=== PATIENT | male | born 1975 | race Hispanic/Latino ===

== ENCOUNTER 2024-06-25 14:50 | Emergency (ER) | payer BC, SELFPAY ==
--- NOTE | ~2024-06-25 | XR_ITS ---
EXAMINATION: XR shoulder LT min 2V DATE: 06/25/2024 15:35 INDICATION: Left shoulder dislocation status post reduction. TECHNIQUE: 2 views of left shoulder were obtained. COMPARISON: Left shoulder radiographs at 2:59 PM FINDINGS: Alignment is normal. There is a fracture fragment posterior to the humeral head. The glenoh umeral joint is not well profiled. There is severe osteoarthritis or coracoclavicular joint. IMPRESSION: 1. Normal alignment at glenohumeral joint. 2. Displaced fracture fragment posterior to the humeral head. 3. Severe acromioclavicular joint osteoarthritis. Reviewed, dictated and finalized at location B.
--- NOTE | ~2024-06-25 | XR_ITS ---
EXAMINATION: XR shoulder LT min 2V DATE: 06/25/2024 15:02 INDICATION: Left shoulder injury. TECHNIQUE: 3 views of left shoulder were obtained. COMPARISON: None. FINDINGS: There is anterior dislocation of humeral head with respect to glenoid. No visible fracture. There is severe osteoarthritis of acromioclavicular joint. IMPRESSION: 1. Anterior left shoulder dislocation. Reviewed, dictated and finalized at location B.
[2024-06-25 14:52] VITALS: BP 141/97; PULSE 58; RESP 19; TEMP 36.6; O2SAT 100
[2024-06-25] MEDS: ONDANSETRON INJ 4 MG/2 ML VIAL IV PUSH (15:05)
[2024-06-25] MEDS: HYDROmorphone HCL INJ (*CRX) 1 MG/ML SYR 0.5 MG IV PUSH (15:07)
--- NOTE | 2024-06-25 15:22 | ED.FALL ---
HPI - Fall General Chief Complaint: Fall Stated Complaint: dislocated shoulder post fall Time Seen by Provider: 06/25/24 15:22 History of Present Illness HPI Narrative: PATIENT HAD GROUND LEVEL FALL, PLAYING HOCKEY, COMPLAINING OF LEFT SHOULDER PAIN, DEFORMITY, DENIES OTHER INJURIES. Related Data Home Medications Medication Instructions Recorded Confirmed No Home Medications 08/15/21 08/15/21 Allergies Allergy/AdvReac Type Severity Reaction Status Date / Time Penicillins Allergy Mild Rash Verified 08/27/22 09:23 Review of Systems Review of Systems: All systems reviewed & are unremarkable except as noted in HPI and below PMFSH Family History Family History Father Dementia Social History Social History Smoking status: Never smoker Second hand tobacco smoke exposure: No Alcohol intake: current Substance use: never Substance use type: does not use Living arrangements: with family Occupation/Education: occupation Gender identity (if verbalized by the patient): Male Sexual Orientation (if Verbalized by the Patient): Straight or Heterosexual Exam Narrative: GENERAL APPEARANCE: WELL-DEVELOPED, WELL-NOURISHED SKIN: NORMAL COLOR HEAD: NORMOCEPHALIC, NONTRAUMATIC EYES: CLEAR CONJUNCTIVA ENT: OROPHARYNX NORMAL, EARS NORMAL, NOSE NORMAL NECK: SUPPLE, NONTENDER CHEST AND RESPIRATORY: AIRWAY PATENT, NO RESPIRATORY DISTRESS, NO ACCESSORY MUSCLE USE HEART: REGULAR RATE/RHYTHM ABDOMEN: SOFT, NONTENDER, NO ORGANOMEGALY, QUIET BOWEL SOUNDS VASCULAR: NORMAL PERIPHERAL PULSES, NORMAL CAPILLARY REFILL. MUSCULOSKELETAL: LEFT SHOULDER EXAM SHOWED DEFORMITY, SEVERE DIFFUSE TENDERNESS, SEVERE LIMITED RANGE OF MOTION, NEUROVASCULAR INTACT NEUROLOGIC: ALERT AND ORIENTED ?3, CIRCULATION SALES REPRESENTATIVE IS NORMAL TESTED, NO GROSS MOTOR DEFICIT Course Vital Signs Vital signs: Vital Signs Temperature 36.6 C 06/25/24 14:52 Pulse Rate 58 L 06/25/24 14:52 Respiratory Rate 19 06/25/24 14:52 Blood Pressure 141/97 H 06/25/24 14:52 Pulse Oximetry 100 06/25/24 14:52 Oxygen Delivery Room Air 06/25/24 14:52 Temperature 36.6 C 06/25/24 14:52 Pulse Rate 58 L 06/25/24 14:52 Respiratory Rate 19 06/25/24 14:52 Blood Pressure 141/97 H 06/25/24 14:52 Pulse Oximetry 100 06/25/24 14:52 Oxygen Delivery Room Air 06/25/24 14:52 Procedures Orthopedic Joint Reduction Joint #1: Orthopedic Joint Reduction Date: 06/25/24 Orthopedic Joint Reduction Time: 15:34 Time Out Performed: Yes (2) Side: left Joint Reduction Location: shoulder Analgesia: none Pre-Procedure Neuro Vascular Exam: normal Shoulder Technique Used (if applicable): external rotation Post-reduction neuro exam: intact Post-reduction vascular: intact Post Reduction X-Ray Obtained: Yes Post Reduction X-Ray Results: reduced Splint Applied: Yes Patient Tolerated Procedure: well MDM - Fall MDM Narrative Medical decision making narrative: PATIENT HAD A FALL, LEFT SHOULDER DISLOCATION, CLOSED REDUCTION WITHOUT CONSCIOUS SEDATION, PATIENT TOLERATED THE PROCEDURE WELL DISCHARGED ON SHOULDER IMMOBILIZER, TO FOLLOW-UP WITH ORTHOPEDIC Differential Diagnosis Differential diagnosis: Likely other (DISLOCATION, SHOULDER) Imaging Data Radiologist's impression: Impressions Shoulder X-Ray 06/25/24 15:03 IMPRESSION: 1. Anterior left shoulder dislocation. Shoulder X-Ray 06/25/24 15:37 IMPRESSION: 1. Normal alignment at glenohumeral joint. 2. Displaced fracture fragment posterior to the humeral head. 3. Severe acromioclavicular joint osteoarthritis. Discharge Plan Discharge Clinical Impression: Anterior dislocation of left shoulder Patient Disposition: Home, Self-Care Condition: Improved Instructions: Shoulder Dislocation (ED), Closed Reduction (ED) Additional Instructions: RETURN IF SYMPTOMS ARE WORSENING , CALL ORTHOPEDIC FOR APPOINTMENT, TAKE TYLENOL NEEDED FOR ACHES AND PAIN, CONTINUE HOME MEDICATIONS. Prescriptions: No Action No Home Medications Follow-up/Referrals: Rahul Garnett MD [Primary Care Provider] - Montez Cordero MD [Physician] - 06/28/24
== END 2024-06-25 16:24 | disposition home or self-care (01) ==
LOC: ANHED 16:02
PROVIDERS: Emergency Provider Emergency Medicine; PCP Family Medicine
DX: S43.015A Anterior dislocation of left humerus, initial encounter (principal); W18.30XA Fall on same level, unspecified, initial encounter; Y93.22 Activity, ice hockey
CPT/HCPCS: 23650; 73030; 96374; 96375; 99285; A4565; J1171; J2405; J7030

== ENCOUNTER 2024-07-28 15:07 | Outpatient (CLI) | payer BC, SELFPAY ==
--- NOTE | ~2024-07-28 | MR_ITS ---
EXAMINATION: MR shoulder LT wo con DATE: 07/28/2024 15:46 INDICATION: Anterior left shoulder dislocation. TECHNIQUE: Magnetic resonance imaging (MRI) of the left shoulder was performed without intravenous co ntrast. Sequences included axial PD-weighted FS FSE, coronal oblique PD-weighted FS FSE and T2-weight ed FS FSE, and sagittal oblique T2-weighted FS FSE and T1-weighted FSE. COMPARISON: Left shoulder radiographs 06/25/2024 FINDINGS: Coracoacromial arch: The acromion undersurface is flat in morphology (type I). There is severe acromioclavicular joint ost eoarthritis. There is mild subacromial/subdeltoid bursitis. Rotator cuff: There is moderate supraspinatus tendinopathy and mild infraspinatus tendinopathy. Teres minor tendon is normal. There is mild subscapularis tendinopathy. The rotator cuff muscle bellies are normal. Biceps tendon and glenoid labrum: Biceps tendon is in bicipital groove. There is mild intra-articular biceps tendinopathy. There is a d isplaced fracture of the anteroinferior glenoid with associated tear of the anteroinferior labrum. Th ere is a tear of the posterior labrum. Fluid: There is a small glenohumeral joint effusion. There is a 4 mm loose body in the glenohumeral joint in feriorly. Bones/cartilage: There is an impaction fracture deformity of superior posterolateral aspect of humeral head (Hill-Sach s fracture deformity). There is shallow partial-thickness cartilage loss of humeral head. There is pa rtial-thickness cartilage loss of glenoid, deep at the posterior glenoid where there are subchondral cysts. IMPRESSION: 1. Bony Bankart lesion. 2. Moderate glenohumeral joint chondrosis. 3. Small glenohumeral joint effusion with loose body. 4. Severe acromioclavicular joint osteoarthritis. 5. Mild subacromial/subdeltoid bursitis. 6. Moderate rotator cuff tendinopathy. No tear. 7. Mild intra-articular biceps tendinopathy. Reviewed, dictated and finalized at location A. TECHNICIAN
== END 2024-07-28 15:08 | disposition home or self-care (01) ==
PROVIDERS: PCP Family Medicine; Visit Provider Orthopaedic Surgery
DX: S43.015A Anterior dislocation of left humerus, initial encounter (principal); S42.202A Unspecified fracture of upper end of left humerus, initial encounter for closed fracture; X58.XXXA Exposure to other specified factors, initial encounter; M75.52 Bursitis of left shoulder; M19.012 Primary osteoarthritis, left shoulder
CPT/HCPCS: 73221

== ENCOUNTER 2024-10-09 07:15 | Emergency (ER) | payer BC, SELFPAY ==
--- NOTE | ~2024-10-09 | XR_ITS ---
EXAMINATION: XR chest 2V DATE: 10/09/2024 07:47 INDICATION: Chest pain TECHNIQUE: PA and lateral views of the chest were obtained. COMPARISON: None FINDINGS: The lungs are clear with no focal airspace opacities, pulmonary edema, pleural effusion or pneumothor ax. Cardiomegaly. Mild thoracic spondylosis. IMPRESSION: 1. Cardiomegaly. Reviewed, dictated and finalized at location A. IDE MAINTENANCE WORKER IMPRESSION: 1. Cardiomegaly.
--- NOTE | 2024-10-09 07:16 | ECG_ITS ---
Test Date: 2024-10-09 07:25:10 Measurements Intervals [place] Rate: 53 P: 4 SC: 133 QRS: 6 QRSD: 94 T: -6 QT: 411 QTc: 386 Interpretive Statements SINUS BRADYCARDIA CONSIDER INFERIOR INFARCT, AGE INDETERMINATE BASELINE ARTIFACT- I, II, III, AVR, AVL, AVF, V4-V6 ABNORMAL ECG No previous ECG available for comparison Electronically Signed On 10-09-2024 07:40:36 [employer]ARN INSPECTOR by Willie Hunter D.O.
[2024-10-09 07:23] VITALS: O2SAT 92
[2024-10-09 07:25] VITALS: PULSE 69
[2024-10-09 07:26] VITALS: BP 156/85; PULSE 55; RESP 18; O2SAT 100
[2024-10-09] MEDS: ASPIRIN 81 MG CHEWABLE TABLET 324 MG PO (07:26)
[2024-10-09 07:27] VITALS: PULSE 58
[2024-10-09 07:34] LABS: Basophils Absolute Auto 0.1 K/mm3 (0.0-0.1); Basophils Percent Auto 0.4 % (0.2-1.2); Eosinophils Absolute Auto 0.1 K/mm3 (0-0.3); Eosinophils Percent Auto 0.6 % (0-4.4); Hematocrit 34.3 % (42.0-52.0); Hemoglobin 10.6 g/dL (14.0-18.0); Immature Granulocyte Absolute 0.04 K/mm3 (0.00-0.031); Immature Granulocyte Percent A 0.3 % (0-0.5); Lymphocytes Absolute Auto 2.45 K/mm3 (0.9-3.2); Lymphocytes Percent Auto 21.1 % (18.3-44.2); Mean Corpuscular HGB Conc 30.9 g/dl (32-36); Mean Corpuscular Hemoglobin 22.8 pg (26-34); Mean Corpuscular Volume 73.9 fl (80-100); Mean Platelet Volume 11.5 fl (7.4-10.4); Monocytes Absolute Auto 0.6 K/mm3 (0.1-0.6); Monocytes Percent Auto 5.2 % (2.6-8.5); Neutrophils Absolute Auto 8.4 K/mm3 (1.3-6.7); Neutrophils Percent Auto 72.4 % (45.5-73.1); Platelet Count Result 279 k/mm3 (150-375); Red Blood Count 4.64 M/mm3 (4.6-6.20); Red Cell Distribution Width 16.6 % (11.5-14.5); White Blood Count 11.6 K/mm3 (4.5-10.0)
--- NOTE | 2024-10-09 07:44 | ED_ITS ---
HPI - General Adult General Chief complaint: Chest Pain Stated complaint: chest pain Time Seen by Provider: 10/09/24 07:23 History of Present Illness HPI narrative: Patient is a 89-year-old male who presents the ER with chest pain. Symptoms began yesterday evening at 6:00 p.m. located centrally without radiation aching in nature. Aggravated by by lying down flat. Alleviated by sitting up. He did eat some pizza last night for dinner. Does not typically get reflux. No belching or vomiting. No exertional chest discomfort. No history of heart disease/hypertension/diabetes. Related Data Allergies Allergy/AdvReac Type Severity Reaction Status Date / Time Penicillins Allergy Mild Rash Verified 10/09/24 07:18 Review of Systems 2 Review of Systems: All systems reviewed & are unremarkable except as noted in HPI and below Constitutional: Constitutional: Reports no additional constitutional complaints Cardiovascular: Cardiovascular: Reports no additional cardiovascular complaints Respiratory: Respiratory: Reports no additional respiratory complaints Gastrointestinal: Gastrointestinal: Reports no additional gastrointestinal complaints Genitourinary: Genitourinary: Reports no additional male genitourinary complaints [facility] Past Medical History Medical History (Updated 10/09/24 @ 09:43 by Roger Mehta MD) Healthy adult male Family History Family History Father Dementia Social History Social History Smoking status: Never smoker Second hand tobacco smoke exposure: No Alcohol intake: current Substance use: never Substance use type: does not use Do You Feel Safe in your Home?: Yes Lack of Transportation: No Lack of Food: Never True Current Housing: I Have Housing Concerned About Future Housing: No Difficulty Paying Gas/Electric Bills: No Difficulty Paying for Meds: No Currently Unemployed: No Education: Bachelor's Degree Difficulty w/ Childcare or Family Care: No Living arrangements: with family Occupation/Education: occupation Gender identity (if verbalized by the patient): Male Sexual Orientation (if Verbalized by the Patient): Straight or Heterosexual Exam 2 Narrative: GENERAL: Well-appearing, well-nourished, and in no acute distress. HEAD: Normocephalic, atraumatic. ENT: Mucous membranes moist. CHEST: Clear to auscultation. No respiratory distress. HEART: Regular rate and rhythm. Normal peripheral pulses. ABDOMEN: Soft, nontender, nondistended. EXTREMITIES: Normal range of motion. No edema. SKIN: Warm, dry, no rash. NEURO: Alert and oriented x3. PSYCH: Normal mood and affect. Course Vital Signs Vital signs: Vital Signs Pulse Oximetry 92 10/09/24 07:23 Oxygen Delivery Room Air 10/09/24 07:23 Pulse Rate 58 L 10/09/24 07:27 Respiratory Rate 18 10/09/24 07:26 Blood Pressure 156/85 H 10/09/24 07:26 Pulse Oximetry 100 10/09/24 07:26 Oxygen Delivery Room Air 10/09/24 07:23 Medical Decision Making MDM Narrative Medical decision making narrative: -Course: Resting comfortably. No major issues. Temporary relief after GI cocktail but significant improvement after Toradol. -Co-morbidities complicating care: History of bradycardia. -Social determinants of health: none -External Chart Review: None -Hx from independent Sources: Patient -Independent interpretation of studies: Mild anemia. X-ray with reported cardiomegaly. Labs otherwise unremarkable. Troponin negative. EKG with nonspecific ST changes. -Interventions: GI cocktail, Toradol -Shared decision making / Disposition: Recommend PPI and NSAIDs for home. Follow-up with PCP. Discussed need to further evaluate anemia possible cardiomegaly. Vital Signs Vital Signs: Vital Signs Pulse Oximetry 92 10/09/24 07:23 Oxygen Delivery Room Air 10/09/24 07:23 Pulse Rate 58 L 10/09/24 07:27 Respiratory Rate 18 10/09/24 07:26 Blood Pressure 156/85 H 10/09/24 07:26 Pulse Oximetry 100 10/09/24 07:26 Oxygen Delivery Room Air 10/09/24 07:23 Lab Data 10/09/24 07:26 10/09/24 07:26 Labs: Lab Results 10/09/24 Range/Units 07:26 WBC 11.6 H (4.5-10.0) K/mm3 RBC 4.64 (4.6-6.20) M/mm3 Hgb 10.6 L (14.0-18.0) g/dL Hct 34.3 L (42.0-52.0) % MCV 73.9 L (80-100) fl MCH 22.8 L (26-34) pg MCHC 30.9 L (32-36) g/dl RDW 16.6 H (11.5-14.5) % Plt Count 279 (150-375) k/mm3 MPV 11.5 H (7.4-10.4) fl Immature Gran % (Auto) 0.3 (0-0.5) % Neut % (Auto) 72.4 (45.5-73.1) % Lymph % (Auto) 21.1 (18.3-44.2) % [place] % (Auto) 5.2 (2.6-8.5) % Eos % (Auto) 0.6 (0-4.4) % Baso % (Auto) 0.4 (0.2-1.2) % Lymph # (Auto) 2.45 (0.9-3.2) K/mm3 [place] # (Auto) 0.6 (0.1-0.6) K/mm3 Eos # (Auto) 0.1 (0-0.3) K/mm3 Baso # (Auto) 0.1 (0.0-0.1) K/mm3 Abs Immat Gran (auto) 0.04 H (0.00-0.031) K/mm3 Absolute Neuts (auto) 8.4 H (1.3-6.7) K/mm3 Absolute Nucleated RBC 0.000 (0.0-0.012) K/mm3 Nucleated RBC % 0.0 (0.0-0.2) % Platelet Estimate Increased (Adequate) Anisocytosis 1+ Ovalocytes 1+ Schistocytes None seen PT 13.0 (11.1-14.7) Seconds INR 0.9 APTT 27.4 (22.3-36.8) Seconds Sodium 138 (137-145) mmol/L Potassium 3.8 (3.4-5.0) mmol/L Chloride 104 (98-107) mmol/L Carbon Dioxide 26 (22-30) mmol/L Anion Gap 8 (4-12) mmol/L BUN 14 (9-20) mg/dL Creatinine 0.79 (0.7-1.3) mg/dL Estim Creat Clear Calc 96 ml/min Estimated GFR > 60 (59 - ) Glucose 118 H (65-110) mg/dL Calcium 9.2 (8.4-10.2) mg/dL Total Bilirubin 0.4 (0.2-1.3) mg/dL AST 32 (17-59) U/L ALT 20 (6-50) U/L Alkaline Phosphatase 132 H (38-126) U/L Troponin I < 0.012 (0.000-0.034) ng/mL Total Protein 8.0 (6.3-8.2) g/dL Albumin 4.1 (3.5-5.1) g/dL Lipase 165 (23-300) U/L ECG Data EKG #1: ECG completion date: 10/09/24 ECG completion time: : EKG Interpretation: bradycardia (53), sinus rhythm, non-specific ST changes, normal QT and NL axis Discharge Plan Discharge Clinical Impression: Anemia, Cardiomegaly, Chest wall pain Patient Disposition: Home, Self-Care Condition: Stable Instructions: Antibiotic Form, Chest Pain (ED), Anemia (ED) Additional Instructions: Please return to the emergency department if you develop severe and persistent chest pain, difficulty breathing, dizziness, leg swelling or if you are coughing up blood as these can be signs of a medical emergency. Please call your doctor for a follow up appointment to determine the need for further testing. Patient Language: Lebanese Prescriptions: New naproxen 375 mg tablet 375 mg PO BID Qty: 14 0RF pantoprazole [Protonix] 40 mg tablet,delayed release (DR/EC) 40 mg PO BID Qty: 30 0RF Follow-up/Referrals: Rahul Garnett MD [Primary Care Provider] - 1 Week Quality HEART score for chest pain patients History: slightly suspicious ECG: non specific repolarization disturbance/LBTB/PM Age: > 45 and < 65 years Risk factors: no risk factors known Troponin: < or = to 1x normal limit Heart score: 2
[2024-10-09 07:49] LABS: Alanine Aminotransferase 20 U/L (6-50); Albumin Level 4.1 g/dL (3.5-5.1); Alkaline Phosphatase 132 U/L (38-126); Anion Gap 8 mmol/L (4-12); Aspartate Amino Transferase 32 U/L (17-59); Bilirubin,Total 0.4 mg/dL (0.2-1.3); Blood Urea Nitrogen 14 mg/dL (9-20); Calcium 9.2 mg/dL (8.4-10.2); Carbon Dioxide 26 mmol/L (22-30); Chloride 104 mmol/L (98-107); Estimated CRCL calculation 96 ml/min; Estimated Glomerular Filt Rate > 60; Glucose 118 mg/dL (65-110); Lipase 165 U/L (23-300); Potassium 3.8 mmol/L (3.4-5.0); Sodium 138 mmol/L (137-145)
[2024-10-09 07:53] LABS: INR 0.9
[2024-10-09 07:54] LABS: Partial Thromboplastin Time 27.4 Seconds (22.3-36.8)
[2024-10-09] MEDS: BELLADONNA ALK/PHENOB ELIX 10 ML, MAG HYDROX/ALUMINUM HYD/SIMETH 30 ML, LIDOCAINE 2% VI... PO (07:56)
[2024-10-09 07:59] LABS: Anisocytosis 1+; Ovalocytes 1+; Platelet Estimate Increased (Adequate); Schistocytes None Seen; Troponin I < 0.012 ng/mL (0.000-0.034)
[2024-10-09] MEDS: KETOROLAC 30 MG/ML VIAL (*BKC) IV PUSH (09:09)
[2024-10-09 09:55] VITALS: BP 125/82; PULSE 51; RESP 16; O2SAT 100
== END 2024-10-09 09:57 | disposition home or self-care (01) ==
PROVIDERS: Emergency Provider Emergency Medicine; PCP Family Medicine
DX: R07.89 Other chest pain (principal); I51.7 Cardiomegaly; D64.9 Anemia, unspecified; R00.1 Bradycardia, unspecified; R94.31 Abnormal electrocardiogram [ECG] [EKG]
CPT/HCPCS: 36415; 71046; 80053; 83690; 84484; 85025; 85610; 85730; 93005; 96374; 99284; A9270; J1885

== ENCOUNTER 2024-11-13 06:59 | Emergency (ER) | payer BC, SELFPAY ==
--- NOTE | ~2024-11-13 | CT_ITS ---
EXAMINATION: CT abdomen pelvis w con DATE: 11/13/2024 08:47 INDICATION: Abdomen pain TECHNIQUE: Computed tomography (CT) of the abdomen and pelvis was performed with 100 cc Omnipaque 350 intravenous contrast. The dose-length product was 392.66 mGy-cm. Automated exposure control and iter ative reconstruction technique were employed. COMPARISON: None. FINDINGS: Lung bases unremarkable. Heart size normal. The liver, spleen, pancreas, adrenal glands and kidneys are unremarkable. There is lymphadenopathy in the portacaval region and lesser curvature of the stomach. There is an accessory splenule at the splenic hilum. There is periaortic lymphadenopathy extending to the bifurcation. Gallbladder is present. Nonobstructive bowel gas pattern. Normal appendix. Uterus is likely surgicall y absent. IMPRESSION: 1. Extensive abdominal lymphadenopathy involving the lesser curvature of the stomach, portacaval loca tion, right renal hilum, interaortocaval and periaortic locations extending to the bifurcation. Findi ngs suspicious for metastatic disease versus lymphoma. Reviewed, dictated and finalized at location B. IMPRESSION: 1. Extensive abdominal lymphadenopathy involving the lesser curvature of the st omach, portacaval location, right renal hilum, interaortocaval and periaortic l ocations extending to the bifurcation. Findings suspicious for metastatic disea se versus lymphoma.
[2024-11-13 07:18] VITALS: BP 141/102; PULSE 63; RESP 18; TEMP 36.8; O2SAT 100
--- NOTE | 2024-11-13 07:31 | ED.GENADULT ---
HPI - General Adult General Chief complaint: Abdominal Pain Stated complaint: abd pain Time Seen by Provider: 11/13/24 07:04 History of Present Illness HPI narrative: 49-year-old male with no reported significant past medical history presenting to the emergency department for evaluation for central abdominal pain. Patient states he was having some lower back pain yesterday but then at approximately 6:00 p.m. started having more central abdominal pain. Patient denies any associated nausea vomiting. Patient states he may have some car issues with constipation but did pass a bowel movement and had no change in his pain. Patient denies any previous surgical history. Patient denies any issues with high blood pressure hypertension. Patient is not taking medication denies any significant past medical history. Related Data Allergies Allergy/AdvReac Type Severity Reaction Status Date / Time Penicillins Allergy Mild Rash Verified 11/13/24 07:00 Review of Systems Review of Systems: All systems reviewed & are unremarkable except as noted in HPI and below PMFSH Past Medical History Medical History (Updated 11/13/24 @ 10:00 by Von Jerez MD) Healthy adult male Family History Family History Father Dementia Social History Social History Smoking status: Never smoker Second hand tobacco smoke exposure: No Alcohol intake: current Substance use: never Substance use type: does not use Do You Feel Safe in your Home?: Yes Lack of Transportation: No Lack of Food: Never True Current Housing: I Have Housing Concerned About Future Housing: No Difficulty Paying Gas/Electric Bills: No Difficulty Paying for Meds: No Currently Unemployed: No Education: Bachelor's Degree Difficulty w/ Childcare or Family Care: No Living arrangements: with family Occupation/Education: occupation Gender identity (if verbalized by the patient): Male Sexual Orientation (if Verbalized by the Patient): Straight or Heterosexual Exam Narrative: APPEARANCE: Uncomfortable appearing HEAD: normocephalic, atraumatic. EYES: PERRLA/EOMI, conjunctivae clear. NOSE: Normal no drainage EARS:TMS clear with good light reflex. THROAT: Pharynx clear, no exudate. NECK: Supple. No adenopathy, no masses. RESPIRATORY: Airway patent, respirations nonlabored. Clear to auscultation bilaterally, no rales, rhonchi, wheezing. CARDIOVASCULAR: Regular rate and rhythm without murmurs rubs or gallops. ABDOMINAL: Normal bowel sounds with no significant reproducible abdominal tenderness to palpation MUSCULOSKELETAL: Moves all extremities. Strength/ROM intact, No edema, No calf tenderness. NEURO: Alert. Cranial nerves II through XII intact. Good gait. Good coordination SKIN: Warm, dry. Normal Color Course Vital Signs Vital signs: Vital Signs Temperature 98.3 F 11/13/24 07:18 Pulse Rate 63 11/13/24 07:18 Respiratory Rate 18 11/13/24 07:18 Blood Pressure 141/102 H 11/13/24 07:18 Pulse Oximetry 100 11/13/24 07:18 Oxygen Delivery Room Air 11/13/24 07:18 Temperature 98.3 F 11/13/24 07:18 Pulse Rate 50 L 11/13/24 09:28 Respiratory Rate 16 11/13/24 09:28 Blood Pressure 134/85 11/13/24 09:28 Pulse Oximetry 100 11/13/24 09:28 Oxygen Delivery Room Air 11/13/24 07:18 Medical Decision Making MDM Narrative Medical decision making narrative: 49-year-old male present to the emergency department for evaluation of a back pain and abdominal pain. Patient is currently afebrile but does have a leukocytosis of 11.1 with a hemoglobin 11.4. No significant abnormalities on at lymphocytes are neutrophils. No acute abnormalities on the CMP lipase LDH were also normal. CT scan was concerning for metastatic disease versus lymphoma due to extensive lymphadenopathy. Case was discussed with the patient's primary care physician and they will help to ensure he has outpatient follow-up potentially including a PET scan. Patient was advised to have close follow-up with his primary care physician. Patient will be provided medication for pain control. All questions concerns were addressed and patient was well-appearing at time of discharge. Differential Diagnosis Differential Diagnosis: Colitis, diverticulitis, small-bowel obstruction, ileus, lymphoma, metastatic disease, mesenteric adenitis Vital Signs Vital Signs: Vital Signs Temperature 98.3 F 11/13/24 07:18 Pulse Rate 63 11/13/24 07:18 Respiratory Rate 18 11/13/24 07:18 Blood Pressure 141/102 H 11/13/24 07:18 Pulse Oximetry 100 11/13/24 07:18 Oxygen Delivery Room Air 11/13/24 07:18 Temperature 98.3 F 11/13/24 07:18 Pulse Rate 50 L 11/13/24 09:28 Respiratory Rate 16 11/13/24 09:28 Blood Pressure 134/85 11/13/24 09:28 Pulse Oximetry 100 11/13/24 09:28 Oxygen Delivery Room Air 11/13/24 07:18 Lab Data Lab results reviewed: Yes I reviewed the patient's lab results. 11/13/24 07:43 11/13/24 07:43 Labs: Lab Results 11/13/24 11/13/24 Range/Units 07:42 07:43 WBC 11.1 H (4.5-10.0) K/mm3 RBC 4.93 (4.6-6.20) M/mm3 Hgb 11.4 L (14.0-18.0) g/dL Hct 36.5 L (42.0-52.0) % MCV 74.0 L (80-100) fl MCH 23.1 L (26-34) pg MCHC 31.2 L (32-36) g/dl RDW 18.3 H (11.5-14.5) % Plt Count 248 (150-375) k/mm3 MPV 11.1 H (7.4-10.4) fl Immature Gran % (Auto) 0.2 (0-0.5) % Neut % (Auto) 74.9 H (45.5-73.1) % Lymph % (Auto) 16.8 L (18.3-44.2) % [place] % (Auto) 7.2 (2.6-8.5) % Eos % (Auto) 0.5 (0-4.4) % Baso % (Auto) 0.4 (0.2-1.2) % Lymph # (Auto) 1.87 (0.9-3.2) K/mm3 [place] # (Auto) 0.8 H (0.1-0.6) K/mm3 Eos # (Auto) 0.1 (0-0.3) K/mm3 Baso # (Auto) 0.0 (0.0-0.1) K/mm3 Abs Immat Gran (auto) 0.02 (0.00-0.031) K/mm3 Absolute Neuts (auto) 8.3 H (1.3-6.7) K/mm3 Absolute Nucleated RBC 0.000 (0.0-0.012) K/mm3 Band Neutrophils % Not Reportable Nucleated RBC % 0.0 (0.0-0.2) % Platelet Estimate Adequate (Adequate) Hypochromasia 1+ Anisocytosis 1+ Microcytosis 1+ (NORMAL) Schistocytes None seen PT 13.8 (11.1-14.7) Seconds INR 1.0 APTT 27.9 (22.3-36.8) Seconds Sodium 140 (137-145) mmol/L Potassium 3.9 (3.4-5.0) mmol/L Chloride 104 (98-107) mmol/L Carbon Dioxide 28 (22-30) mmol/L Anion Gap 8 (4-12) mmol/L BUN 11 (9-20) mg/dL Creatinine 0.94 (0.7-1.3) mg/dL Estim Creat Clear Calc 79 ml/min Estimated GFR > 60 (59 - ) Glucose 126 H (65-110) mg/dL Lactic Acid 1.0 (0.7-2.0) mmol/L Calcium 9.5 (8.4-10.2) mg/dL Total Bilirubin 0.4 (0.2-1.3) mg/dL AST 27 (17-59) U/L ALT 20 (6-50) U/L Alkaline Phosphatase 145 H (38-126) U/L Lactate Dehydrogenase 208 (120-246) U/L Total Protein 9.0 H (6.3-8.2) g/dL Albumin 4.3 (3.5-5.1) g/dL Lipase 76 (23-300) U/L Imaging Data Radiologist's impression: Impressions Abdomen/Pelvis CT 11/13/24 08:48 IMPRESSION: 1. Extensive abdominal lymphadenopathy involving the lesser curvature of the stomach, portacaval location, right renal hilum, interaortocaval and periaortic locations extending to the bifurcation. Findings suspicious for metastatic disease versus lymphoma. Discharge Plan Discharge Clinical Impression: Abdominal pain, Lymphadenopathy Patient Disposition: Home, Self-Care Condition: Stable Instructions: Antibiotic Form, Abdominal Pain (ED) Additional Instructions: Your CT scan did show extensive lymphadenopathy. It is recommended to have close outpatient follow-up with your primary care physician for additional outpatient testing potentially including a PET scan. Give Dr. Garnett's office a call on Friday. If you have any worsening symptoms then please call or return to the emergency department. Patient Language: [place] Islander Prescriptions: New hydrocodone-acetaminophen 5-325 mg tablet 1 tablet PO Q12H PRN (Reason: pain) Qty: 14 0RF No Action naproxen 375 mg tablet 375 mg PO BID Qty: 14 0RF pantoprazole [Protonix] 40 mg tablet,delayed release (DR/EC) 40 mg PO BID Qty: 30 0RF Follow-up/Referrals: Rahul Garnett MD [Primary Care Provider] -
[2024-11-13] MEDS: HYDROmorphone HCL INJ (*CRX) 1 MG/ML SYR 0.5 MG IV PUSH (07:46)
[2024-11-13] MEDS: SODIUM CHLORIDE 0.9% IV 1,000 ML 999 ML IV CONT (07:46)
[2024-11-13] MEDS: ONDANSETRON INJ 4 MG/2 ML VIAL IV PUSH (07:47)
[2024-11-13 07:49] LABS: Basophils Percent Auto 0.4 % (0.2-1.2); Eosinophils Absolute Auto 0.1 K/mm3 (0-0.3); Eosinophils Percent Auto 0.5 % (0-4.4); Hematocrit 36.5 % (42.0-52.0); Hemoglobin 11.4 g/dL (14.0-18.0); Immature Granulocyte Absolute 0.02 K/mm3 (0.00-0.031); Immature Granulocyte Percent A 0.2 % (0-0.5); Lymphocytes Absolute Auto 1.87 K/mm3 (0.9-3.2); Lymphocytes Percent Auto 16.8 % (18.3-44.2); Mean Corpuscular HGB Conc 31.2 g/dl (32-36); Mean Corpuscular Hemoglobin 23.1 pg (26-34); Mean Platelet Volume 11.1 fl (7.4-10.4); Monocytes Absolute Auto 0.8 K/mm3 (0.1-0.6); Monocytes Percent Auto 7.2 % (2.6-8.5); Neutrophils Absolute Auto 8.3 K/mm3 (1.3-6.7); Neutrophils Percent Auto 74.9 % (45.5-73.1); Platelet Count Result 248 k/mm3 (150-375); Red Blood Count 4.93 M/mm3 (4.6-6.20); Red Cell Distribution Width 18.3 % (11.5-14.5); White Blood Count 11.1 K/mm3 (4.5-10.0)
[2024-11-13 08:01] LABS: Prothrombin Time 13.8 Seconds (11.1-14.7)
[2024-11-13 08:02] LABS: Partial Thromboplastin Time 27.9 Seconds (22.3-36.8)
[2024-11-13 08:09] LABS: Alanine Aminotransferase 20 U/L (6-50); Albumin Level 4.3 g/dL (3.5-5.1); Alkaline Phosphatase 145 U/L (38-126); Anion Gap 8 mmol/L (4-12); Aspartate Amino Transferase 27 U/L (17-59); Bilirubin,Total 0.4 mg/dL (0.2-1.3); Blood Urea Nitrogen 11 mg/dL (9-20); Calcium 9.5 mg/dL (8.4-10.2); Carbon Dioxide 28 mmol/L (22-30); Chloride 104 mmol/L (98-107); Estimated CRCL calculation 79 ml/min; Estimated Glomerular Filt Rate > 60; Glucose 126 mg/dL (65-110); Lipase 76 U/L (23-300); Potassium 3.9 mmol/L (3.4-5.0); Sodium 140 mmol/L (137-145)
[2024-11-13 08:15] LABS: Platelet Estimate Adequate (Adequate)
[2024-11-13 08:16] LABS: Anisocytosis 1+; Hypochromasia 1+; Microcytosis 1+ (NORMAL); Schistocytes None Seen
[2024-11-13 09:28] VITALS: BP 134/85; PULSE 50; RESP 16; O2SAT 100
[2024-11-13 09:33] LABS: Lactate Dehydrogenase 208 U/L (120-246)
== END 2024-11-13 10:10 | disposition home or self-care (01) ==
PROVIDERS: Emergency Provider Emergency Medicine; PCP Family Medicine
DX: R10.9 Unspecified abdominal pain (principal); R59.1 Generalized enlarged lymph nodes
CPT/HCPCS: 36415; 74177; 80053; 83605; 83615; 83690; 85025; 85610; 85730; 96361; 96374; 96375; 99284; J1171; J2405; J7030; Q9967

== ENCOUNTER 2024-11-13 20:25 | Emergency (ER) | payer BC, SELFPAY ==
[2024-11-13 20:43] VITALS: BP 159/92; PULSE 88; RESP 20; O2SAT 100
[2024-11-13 20:48] LABS: Basophils Absolute Auto 0.1 K/mm3 (0.0-0.1); Basophils Percent Auto 0.4 % (0.2-1.2); Eosinophils Percent Auto 0.1 % (0-4.4); Hematocrit 36.3 % (42.0-52.0); Hemoglobin 11.3 g/dL (14.0-18.0); Immature Granulocyte Absolute 0.04 K/mm3 (0.00-0.031); Immature Granulocyte Percent A 0.2 % (0-0.5); Lymphocytes Absolute Auto 2.56 K/mm3 (0.9-3.2); Lymphocytes Percent Auto 15.9 % (18.3-44.2); Mean Corpuscular HGB Conc 31.1 g/dl (32-36); Mean Corpuscular Hemoglobin 22.9 pg (26-34); Mean Corpuscular Volume 73.6 fl (80-100); Mean Platelet Volume 11.4 fl (7.4-10.4); Monocytes Absolute Auto 1.3 K/mm3 (0.1-0.6); Neutrophils Absolute Auto 12.2 K/mm3 (1.3-6.7); Neutrophils Percent Auto 75.4 % (45.5-73.1); Platelet Count Result 265 k/mm3 (150-375); Red Blood Count 4.93 M/mm3 (4.6-6.20); Red Cell Distribution Width 18.7 % (11.5-14.5); White Blood Count 16.1 K/mm3 (4.5-10.0)
[2024-11-13 21:02] LABS: Alanine Aminotransferase 19 U/L (6-50); Albumin Level 4.3 g/dL (3.5-5.1); Alkaline Phosphatase 141 U/L (38-126); Anion Gap 9 mmol/L (4-12); Aspartate Amino Transferase 30 U/L (17-59); Bilirubin,Total 0.6 mg/dL (0.2-1.3); Blood Urea Nitrogen 11 mg/dL (9-20); Calcium 9.7 mg/dL (8.4-10.2); Carbon Dioxide 26 mmol/L (22-30); Chloride 102 mmol/L (98-107); Estimated CRCL calculation 65 ml/min; Estimated Glomerular Filt Rate > 60; Glucose 129 mg/dL (65-110); Lipase 72 U/L (23-300); Potassium 3.9 mmol/L (3.4-5.0); Sodium 137 mmol/L (137-145)
[2024-11-13] MEDS: KETOROLAC 30 MG/ML VIAL (*BKC) IV PUSH (21:05)
[2024-11-13 21:16] LABS: Platelet Estimate Adequate (Adequate)
[2024-11-13 21:17] LABS: Anisocytosis 1+; Ovalocytes 1+
[2024-11-13 21:18] LABS: Schistocytes None Seen
[2024-11-13 21:19] LABS: Microcytosis 1+ (NORMAL)
--- NOTE | 2024-11-13 21:22 | ED.ABDPAIN ---
HPI - Abdominal Pain General Chief Complaint: Abdominal Pain Stated Complaint: abd pain Time Seen by Provider: 11/13/24 20:29 History of Present Illness HPI narrative: 49-year-old male presents to emergency department for abdominal pain that started overnight. Patient states the pain started in his back and moved to the middle of his abdomen. He cannot identify any aggravating or alleviating factors. He denies nausea or vomiting, diarrhea. Last bowel movement was yesterday. He did have a fever of 101 this evening. He has not taken anything for his fever. Patient was evaluated earlier in our emergency department today for the same symptoms. Lab work at that time was unremarkable. CT of the abdomen pelvis showed extensive abdominal lymphadenopathy. The patient was advised to follow-up with his PCP for this to have an outpatient PET scan. He has no history of cancer and no past medical history. No recent travel. Related Data Allergies Allergy/AdvReac Type Severity Reaction Status Date / Time Penicillins Allergy Mild Rash Verified 11/13/24 07:00 Review of Systems Review of Systems: All systems reviewed & are unremarkable except as noted in HPI and below PMFSH Past Medical History Medical History Healthy adult male Family History Family History Father Dementia Social History Social History Smoking status: Never smoker Second hand tobacco smoke exposure: No Alcohol intake: current Substance use: never Substance use type: does not use Do You Feel Safe in your Home?: Yes Lack of Transportation: No Lack of Food: Never True Current Housing: I Have Housing Concerned About Future Housing: No Difficulty Paying Gas/Electric Bills: No Difficulty Paying for Meds: No Currently Unemployed: No Education: Bachelor's Degree Difficulty w/ Childcare or Family Care: No Living arrangements: with family Occupation/Education: occupation Gender identity (if verbalized by the patient): Male Sexual Orientation (if Verbalized by the Patient): Straight or Heterosexual Exam Narrative: GENERAL: Appears uncomfortable HEAD: Normocephalic, atraumatic. EYES: EOMI. ENT: Nares clear, no rhinorrhea or epistaxis. Mucous membranes moist. NECK: Supple. CHEST: Clear to auscultation. No respiratory distress. HEART: Regular rate and rhythm. No murmur heard. Normal peripheral pulses. ABDOMEN: Normoactive bowel sounds normal soft nontender return rigidity. No CVA tenderness. EXTREMITIES: Normal range of motion. No edema. SKIN: Warm, dry, no rash. NEURO: No focal deficits. Alert and oriented x3 Course Vital Signs Vital signs: Vital Signs Pulse Rate 88 11/13/24 20:43 Respiratory Rate 20 11/13/24 20:43 Blood Pressure 159/92 H 11/13/24 20:43 Pulse Oximetry 100 11/13/24 20:43 Temperature 99.5 F 11/13/24 21:28 Pulse Rate 88 11/13/24 20:43 Respiratory Rate 20 11/13/24 20:43 Blood Pressure 159/92 H 11/13/24 20:43 Pulse Oximetry 100 11/13/24 20:43 MDM - Abdominal Pain MDM Narrative Medical decision making narrative: 49-year-old male presents emergency department for abdominal pain that started overnight. See HPI for further history. Vitals with elevated blood pressure 159/92, otherwise unremarkable. Patient does appear uncomfortable and is writhing in exam bed, abdomen soft with tenderness in the periumbilical region. No rebound or rigidity. Lab work repeated now shows leukocytosis 16.1, no bandemia. Platelets are normal at 265, hemoglobin at baseline at 11.3. Chemistries with elevation in alk-phos to 141. Lipase normal limits. Patient was given IV Toradol with significant improvement. On re-evaluation he is resting comfortably in exam bed, sleeping. He is easily arousable and states he is significantly improved. I did offer admission for pain control, however patient politely declined and states he would like to be discharged and agrees to follow-up closely with his PCP. Will send p.o. Toradol to the pharmacy advised him to continue his [place] p.r.n.. I discussed strict ED return precautions. They are agreeable with the plan verbalized understanding. Discharged in stable condition. Lab Data 11/13/24 20:42 11/13/24 20:42 Labs: Lab Results 11/13/24 11/13/24 Range/Units 20:42 22:08 WBC 16.1 H (4.5-10.0) K/mm3 RBC 4.93 (4.6-6.20) M/mm3 Hgb 11.3 L (14.0-18.0) g/dL Hct 36.3 L (42.0-52.0) % MCV 73.6 L (80-100) fl MCH 22.9 L (26-34) pg MCHC 31.1 L (32-36) g/dl RDW 18.7 H (11.5-14.5) % Plt Count 265 (150-375) k/mm3 MPV 11.4 H (7.4-10.4) fl Immature Gran % (Auto) 0.2 (0-0.5) % Neut % (Auto) 75.4 H (45.5-73.1) % Lymph % (Auto) 15.9 L (18.3-44.2) % [place] % (Auto) 8.0 (2.6-8.5) % Eos % (Auto) 0.1 (0-4.4) % Baso % (Auto) 0.4 (0.2-1.2) % Lymph # (Auto) 2.56 (0.9-3.2) K/mm3 [place] # (Auto) 1.3 H (0.1-0.6) K/mm3 Eos # (Auto) 0.0 (0-0.3) K/mm3 Baso # (Auto) 0.1 (0.0-0.1) K/mm3 Abs Immat Gran (auto) 0.04 H (0.00-0.031) K/mm3 Absolute Neuts (auto) 12.2 H (1.3-6.7) K/mm3 Absolute Nucleated RBC 0.000 (0.0-0.012) K/mm3 Band Neutrophils % Not Reportable Nucleated RBC % 0.0 (0.0-0.2) % Platelet Estimate Adequate (Adequate) Anisocytosis 1+ Microcytosis 1+ (NORMAL) Ovalocytes 1+ Schistocytes None seen Sodium 137 (137-145) mmol/L Potassium 3.9 (3.4-5.0) mmol/L Chloride 102 (98-107) mmol/L Carbon Dioxide 26 (22-30) mmol/L Anion Gap 9 (4-12) mmol/L BUN 11 (9-20) mg/dL Creatinine 1.07 (0.7-1.3) mg/dL Estim Creat Clear Calc 65 ml/min Estimated GFR > 60 (59 - ) Glucose 129 H (65-110) mg/dL Calcium 9.7 (8.4-10.2) mg/dL Total Bilirubin 0.6 (0.2-1.3) mg/dL AST 30 (17-59) U/L ALT 19 (6-50) U/L Alkaline Phosphatase 141 H (38-126) U/L Total Protein 9.0 H (6.3-8.2) g/dL Albumin 4.3 (3.5-5.1) g/dL Lipase 72 (23-300) U/L Urine Color Pending Urine Appearance Pending Urine pH Pending Ur Specific [place] Pending Urine Protein Pending Urine Glucose (UA) Pending Urine Ketones Pending Ur Blood (Man) Pending Urine Nitrate Pending Urine Bilirubin Pending Urine Urobilinogen Pending Leukocyte Esterase Rfl Pending Discharge Plan Discharge Clinical Impression: Abdominal lymphadenopathy Abdominal pain Qualifiers: Abdominal location: generalized Qualified Code(s): R10.84 - Generalized abdominal pain Patient Disposition: Home, Self-Care Condition: Stable Instructions: Antibiotic Form, Abdominal Pain (ED) Additional Instructions: You were evaluated in the emergency department for abdominal pain. He his CT scan you had earlier today shows he enlarged lymph nodes throughout her abdomen. It is uncertain what is causing this but may be due to a viral or bacterial illness, or cancer. It is important a follow-up with your primary care provider on Friday to schedule an outpatient PET scan. She please taking hydrocodone was prescribed you earlier today as directed as well as the Toradol I prescribed to you. Drink plenty of fluids including water, Gatorade and Pedialyte. Return to the emergency department if you develop new or worsening symptoms. Patient Language: Mexican Prescriptions: New ketorolac 10 mg tablet 10 mg PO Q6H PRN (Reason: pain) Qty: 14 0RF Rx Instructions: maximum total duration of 5 days from all oral, intranasal, or parenteral formulations No Action naproxen 375 mg tablet 375 mg PO BID Qty: 14 0RF pantoprazole [Protonix] 40 mg tablet,delayed release (DR/EC) 40 mg PO BID Qty: 30 0RF hydrocodone-acetaminophen 5-325 mg tablet 1 tablet PO Q12H PRN (Reason: pain) Qty: 14 0RF Follow-up/Referrals: Rahul Garnett MD [Primary Care Provider] -
[2024-11-13 21:28] VITALS: TEMP 37.5
[2024-11-13 22:18] LABS: Add Urine Microscopic? YES; Appearance Urine Clear (Clear); Bacteria Urine None Seen /hpf; Bilirubin Urine Negative (Negative); Blood Urine Negative (Negative); Color Urine Yellow (Yellow); Glucose Urine UA Negative (Negative); Ketones Urine Trace mg/dL (Negative); Leukocyte Esterase Ur Negative LEU/UL (Negative); Nitrate Urine Negative (Negative); Protein Urine 1+ mg/dL (Negative); RBC Urine 0-2 /hpf (0-2); Specific Grav Ur 1.036 (1.001-1.035); Squamous Epithelial Cell Urine None Seen /hpf (Few); WBC Urine 0-5 /hpf (0-3)
== END 2024-11-13 22:20 | disposition home or self-care (01) ==
PROVIDERS: Emergency Medicine; Emergency Provider Physician Assistant; PCP Family Medicine
DX: R10.84 Generalized abdominal pain (principal); R59.1 Generalized enlarged lymph nodes
CPT/HCPCS: 36415; 80053; 81001; 83690; 85025; 96374; 99284; J1885

== ENCOUNTER 2024-11-25 12:00 | Outpatient (CLI) | payer BC, SELFPAY ==
--- NOTE | ~2024-11-25 | PE_ITS ---
EXAMINATION: PET skull to mid thigh DATE: 11/25/2024 14:25 INDICATION: Enlarged lymph nodes TECHNIQUE: Blood glucose level was 96 mg/dL. 10.302 mCi of 18-fluorodeoxyglucose (18-FDG) was adminis tered i.v. Low dose computed tomography (CT) images were acquired from the base of the brain to the p roximal thighs for attenuation correction and anatomic localization. Positron emission tomography (PE T) images were acquired in the same distribution beginning 62 minutes after injection. Images includi ng fused PET/CT images were reconstructed in axial, coronal, and sagittal planes. Automated exposure control technique was employed. The dose-length product was 850.38mGy-cm. COMPARISON: CT dated 11/13/2024 FINDINGS: Head/neck: There is symmetric increased activity in the oral cavity, palatine tonsils, parotid glands, submandi bular glands, laryngeal muscles and ocular muscles without CT correlate, likely physiologic. There is a cluster of mildly enlarged and prominently FDG avid left supraclavicular and lower left jugular ch ain lymph nodes which are concerning for metastatic disease or lymphoma. For reference a 1.8 x 1.6 cm left jugular chain lymph node demonstrates FDG uptake with maximal SUV of 22. Chest: Mild dependent atelectasis at the basilar lower lobes. No suspicious pulmonary nodules, pneumonia or pleural effusion. Heart size is normal. Vascular is normal in caliber. No pathologically enlarged or FDG avid thoracic lymphadenopathy. Abdomen/pelvis/proximal thighs: Physiologic renal accumulation and excretion of FDG activity in the kidneys, bladder and along portio ns of ureters. Normal degree and heterogenous pattern of increased uptake throughout the liver withou t radiologic correlate or dominant FDG avid lesion. The gallbladder, pancreas, spleen and bilateral a drenal glands are normal. Mild uptake scattered throughout the bowels without radiologic correlate, a lso likely physiologic. Normal appendix. There are multiple additional enlarged and mildly FDG avid l ymph nodes in the abdomen and pelvis including gastrohepatic, portacaval pericaval, periaortic and bi lateral common iliac chains segment consistent with metastatic disease or lymphoma. For reference the precaval lymph node measures 3.0 x 2.1 cm with maximal SUV of 15.1. Musculoskeletal: No suspicious lytic, blastic or abnormally FDG avid bone lesions. IMPRESSION: 1. Enlarged and FDG avid lymph nodes at the neck and abdomen as detailed above suspicious for lymphom a or potentially metastatic disease although no lesion suspicious for primary malignancy is identifie d. Recommend ultrasound-guided core needle biopsy of one of the enlarged lymph nodes at the left base of the neck. Reviewed, dictated and finalized at location A. IMPRESSION: 1. Enlarged and FDG avid lymph nodes at the neck and abdomen as detailed above suspicious for lymphoma or potentially metastatic disease although no lesion rothman spicious for primary malignancy is identified. Recommend ultrasound-guided core needle biopsy of one of the enlarged lymph nodes at the left base of the neck.
[2024-11-25 12:25] LABS: Glucose Point of Care 96 mg/dl (65-105)
== END 2024-11-25 12:01 | disposition home or self-care (01) ==
PROVIDERS: PCP Family Medicine; Visit Provider Family Medicine
DX: R59.0 Localized enlarged lymph nodes (principal)
CPT/HCPCS: 78815; A9552